=== PATIENT | male | born 1960 | race Caucasian/White ===

== ENCOUNTER 2023-09-30 14:13 | Inpatient (IN) | payer OTHER ==
[~2023-09-30] VITALS: Ht 188 cm; Wt 72.6 kg
[2023-09-30] MEDS: MORPHINE SULFATE INJ 2 MG/ML DISP.SYRIN IV ONE (14:30)
[2023-09-30 14:55] LABS: BASOPHILS # (AUTO) 0.1 K/uL (0.0-0.2); BASOPHILS % (AUTO) 1.8 % (0.0-2.0); EOSINOPHILS # (AUTO) 0.1 K/uL (0.0-0.7); EOSINOPHILS % (AUTO) 1.9 % (0.0-6.0); HEMATOCRIT 37 % (39-51); HEMOGLOBIN 12.1 g/dL (13.5-17.5); LYMPHOCYTES # (AUTO) 1.8 K/uL (0.8-4.8); LYMPHOCYTES % (AUTO) 28.8 % (20.0-44.0); MEAN CORPUSCULAR HEMOGLOBIN 27 PG (26.0-33.0); MEAN CORPUSCULAR HGB CONC 32 g/dl (31.0-36.0); MEAN CORPUSCULAR VOLUME 83 fL (80-96); MONOCYTES # (AUTO) 0.4 K/uL (0.1-1.30); NEUTROPHILS # (AUTO) 3.8 K/uL (1.8-8.9); NEUTROPHILS % (AUTO) 60.5 % (43.0-81.0); PLATELET COUNT (AUTO) 324 K/uL (150-450); RED BLOOD CELL COUNT(AUTO) 4.48 MIL/uL (4.5-6.0); RED CELL DISTRIBUTION WIDTH 16.2 % (11.5-15.0); WHITE BLOOD COUNT (AUTO) 6.2 K/uL (4.3-11.0)
[2023-09-30] MEDS ORDERED: METO100T14 PO (14:57)
[2023-09-30] MEDS ORDERED: OXYC5TAB3 PO (14:57)
[2023-09-30] MEDS ORDERED: QUET200T PO (14:57)
[2023-09-30] MEDS ORDERED: BENZ1LOZ58 PO (14:57)
[2023-09-30] MEDS ORDERED: MULT-594 PO (14:57)
[2023-09-30] MEDS ORDERED: POLY17PO4 PO (14:57)
[2023-09-30] MEDS ORDERED: CHOL100043 PO (14:57)
[2023-09-30] MEDS ORDERED: ONDA4TAB5 PO (14:57)
[2023-09-30] MEDS ORDERED: NALO1DIS2 IM (14:57)
[2023-09-30] MEDS ORDERED: TIOT18CA3 IH (14:57)
[2023-09-30] MEDS ORDERED: BUDE10.22 IH (14:57)
[2023-09-30] MEDS ORDERED: BISA10SU11 RC (14:57)
[2023-09-30] MEDS ORDERED: MAG30ORA PO (14:57)
[2023-09-30] MEDS ORDERED: LEVO750T46 PO (14:57)
[2023-09-30] MEDS ORDERED: ETHYL CHLORIDE TP (14:57)
[2023-09-30] MEDS ORDERED: ENOX40DI SQ (14:57)
[2023-09-30] MEDS ORDERED: BENZ-13 PO (14:57)
[2023-09-30] MEDS ORDERED: IBUP-1957 PO (14:57)
[2023-09-30] MEDS ORDERED: ASCO-340 PO (14:57)
[2023-09-30] MEDS ORDERED: CLOP75TA15 PO (14:57)
[2023-09-30] MEDS ORDERED: DULO20CA PO (14:57)
[2023-09-30] MEDS ORDERED: ENAL20TA70 PO (14:57)
[2023-09-30] MEDS ORDERED: GLUC1KIT SQ (14:57)
[2023-09-30] MEDS ORDERED: TRAZ-182 PO (14:57)
[2023-09-30] MEDS ORDERED: NICO1PAT44 TD (14:57)
[2023-09-30] MEDS ORDERED: SENN1TAB77 PO (14:57)
[2023-09-30] MEDS ORDERED: INSU100I4 SQ ×2 (14:57)
[2023-09-30] MEDS ORDERED: DOCU100C36 PO (14:57)
[2023-09-30] MEDS ORDERED: QUET25TA PO (14:57)
[2023-09-30] MEDS ORDERED: MAGN400O6 PO (14:57)
[2023-09-30] MEDS ORDERED: PANT20TA2 PO (14:57)
[2023-09-30] MEDS ORDERED: ACET-2030 PO (14:57)
[2023-09-30] MEDS ORDERED: RAME8TAB15 PO (14:57)
[2023-09-30] MEDS ORDERED: PREG100C PO (14:57)
[2023-09-30] MEDS ORDERED: LISI20TA30 PO (14:57)
[2023-09-30] MEDS ORDERED: BISA-79 PO (14:57)
[2023-09-30] MEDS ORDERED: PREG50CA PO (14:57)
[2023-09-30 15:12] LABS: CARBON DIOXIDE 35 mmol/L (21-32); CHLORIDE 98 mmol/L (98-107); CREATININE 0.7 mg/dL (0.6-1.3); GLUCOSE 260 mg/dL (74-106); POTASSIUM 4.8 mmol/L (3.5-5.1); SODIUM SERUM 132 mmol/L (136-145); UREA NITROGEN, BLOOD 18 mg/dL (7-18)
[2023-09-30] MEDS ORDERED: IOHEXOL-350 100 ML VIAL IV ONE (15:20)
[2023-09-30] MEDS ORDERED: IV NS 0.9% 250 ML IV ONE (15:20)
[2023-09-30 15:24] LABS: ALANINE AMINOTRANSFERASE 14 U/L (12-78); ALBUMIN 2.6 g/dL (3.4-5.0); ALKALINE PHOSPHATASE 170 U/L (46-116); ASPARTATE AMINOTRANSFERASE 11 U/L (15-37); BILIRUBIN,DIRECT 0.1 mg/dL (0.0-0.2); BILIRUBIN,TOTAL 0.2 mg/dL (0.2-1.0); CALCIUM, SERUM 8.6 mg/dL (8.5-10.1); NT-PRO BNP 684 pg/mL (0-125); TOTAL PROTEIN, SERUM 8.1 g/dL (6.4-8.2)
[2023-09-30] MEDS ORDERED: MORPHINE SULFATE INJ 2 MG/ML DISP.SYRIN ONE (16:56)
[2023-09-30] MEDS ORDERED: hydrALAZINE HCL IV 20 MG VIAL IV PRN (17:00)
[2023-09-30] MEDS ORDERED: ONDANSETRON HCL/PF 4 MG/2 ML VIAL IVP PRN (17:00)
[2023-09-30] MEDS ORDERED: DEXTROSE 50%-WATER 50 ML DISP.SYRIN IV PRN (17:00)
[2023-09-30] MEDS ORDERED: ALBUTEROL FS 2.5 MG/0.5 ML VIAL.NEB NEB PRN (17:00)
[2023-09-30] MEDS ORDERED: ACETAMINOPHEN 325 MG TABLET PO PRN (17:00)
[2023-09-30] MEDS: MORPHINE SULFATE INJ 2 MG/ML DISP.SYRIN IV PRN (17:14)
[2023-09-30] MEDS: BLOOD SUGAR DIAGNOSTIC 1 EACH STRIP VI SCH (17:30)
[2023-09-30] MEDS ORDERED: oxyCODONE IR immediate release 5 MG TABLET PO PRN (17:30)
[2023-09-30] MEDS ORDERED: IPRATROPIUM/ALBUTEROL INHALER IH SCH (18:00)
[2023-09-30] MEDS: QUETIAPINE FUMARATE 100 MG TABLET PO SCH (18:25)
[2023-09-30] MEDS: DOCUSATE SODIUM LIQ 100 MG/10 ML UDC PO SCH (18:25)
[2023-09-30] MEDS: INSULIN ASPART/LISPRO 100 UNIT/ML CARTRIDGE SQ SCH (18:43)
[2023-09-30 19:00] VITALS: BP 139/71; TEMP 98.8; O2SAT 96
[2023-09-30 19:37] VITALS: BP 131/71; TEMP 98; O2SAT 99
[2023-09-30] MEDS: LEVOFLOXACIN (250MG) 250 MG TABLET PO SCH (19:46)
[2023-09-30 19:55] VITALS: O2SAT 93
[2023-09-30 20:03] VITALS: O2SAT 93
[2023-09-30] MEDS: IPRATROPIUM NEB FS 0.5 MG/2.5 ML AMPUL.NEB NEB SCH (20:05)
[2023-09-30] MEDS: ALBUTEROL FS 2.5 MG/3 ML VIAL.NEB NEB SCH (20:05)
[2023-09-30 20:11] VITALS: O2SAT 95
[2023-09-30] MEDS: PREGABALIN 100 MG CAPSULE PO SCH (21:33)
[2023-09-30] MEDS: METOPROLOL TARTRATE 50 MG TABLET PO SCH (21:34)
[2023-09-30] MEDS: PANTOPRAZOLE 40 MG TABLET.DR PO SCH (21:36)
[2023-09-30] MEDS: TRAZODONE 50 MG TABLET PO SCH (21:36)
[2023-09-30] MEDS: HEPARIN SODIUM, PORCINE 5000 UNITS/1 ML VIAL SQ SCH (21:36)
[2023-09-30 22:00] VITALS: BP 139/73; TEMP 98; O2SAT 100
[2023-09-30] MEDS: INSULIN REGULAR, HUMAN 100 UNIT/ML 3 ML VIAL SQ PRN (22:22)
[2023-10-01] VITALS (13 sets, daily range): BP systolic 95–161; BP diastolic 72–92; TEMP 98–98.6; O2SAT 94–99
[2023-10-01] MEDS: HYDROMORPHONE 1 MG/1 ML DISP.SYRIN IV PRN (03:59)
[2023-10-01 07:44] LABS: POTASSIUM 4.2 mmol/L (3.5-5.1)
[2023-10-01 07:45] LABS: BILIRUBIN,TOTAL 0.2 mg/dL (0.2-1.0); CALCIUM, SERUM 9.1 mg/dL (8.5-10.1); CREATININE 0.7 mg/dL (0.6-1.3); PHOSPHORUS 3.8 mg/dL (2.5-4.9)
[2023-10-01 07:46] LABS: ALBUMIN 2.5 g/dL (3.4-5.0); MAGNESIUM 2.1 mg/dL (1.8-2.4); TOTAL PROTEIN, SERUM 7.9 g/dL (6.4-8.2)
[2023-10-01] MEDS: *INSULIN REGULAR(HUMULIN R)HUM 100 UNIT/ML VIAL SQ PRN (08:31)
[2023-10-01] MEDS: CLOPIDOGREL BISULFATE 75 MG TABLET PO SCH (08:34)
[2023-10-01] MEDS: DULOXETINE HCL 20 MG CAPSULE.DR PO SCH (08:34)
[2023-10-01] MEDS: QUETIAPINE FUMARATE 25 MG TABLET PO SCH (08:34)
[2023-10-01] MEDS: LISINOPRIL (20MG) 20 MG TABLET PO SCH (08:35)
[2023-10-01] MEDS: POLYETHYLENE GLYCOL 3350 17 GM POWD.PACK PO SCH (08:50)
[2023-10-01] MEDS ORDERED: LISINOPRIL (20MG) 20 MG TABLET PO SCH (09:00)
[2023-10-01 10:19] LABS: BASOPHILS # (AUTO) 0.1 K/uL (0.0-0.2); BASOPHILS % (AUTO) 1.3 % (0.0-2.0); EOSINOPHILS # (AUTO) 0.1 K/uL (0.0-0.7); EOSINOPHILS % (AUTO) 1.4 % (0.0-6.0); HEMATOCRIT 37 % (39-51); HEMOGLOBIN 12.5 g/dL (13.5-17.5); LYMPHOCYTES # (AUTO) 1.7 K/uL (0.8-4.8); LYMPHOCYTES % (AUTO) 23.3 % (20.0-44.0); MEAN CORPUSCULAR HEMOGLOBIN 28 PG (26.0-33.0); MEAN CORPUSCULAR HGB CONC 34 g/dl (31.0-36.0); MEAN CORPUSCULAR VOLUME 85 fL (80-96); MONOCYTES # (AUTO) 0.5 K/uL (0.1-1.30); NEUTROPHILS # (AUTO) 4.8 K/uL (1.8-8.9); PLATELET COUNT (AUTO) 313 K/uL (150-450); RED BLOOD CELL COUNT(AUTO) 4.43 MIL/uL (4.5-6.0); RED CELL DISTRIBUTION WIDTH 16.2 % (11.5-15.0); WHITE BLOOD COUNT (AUTO) 7.2 K/uL (4.3-11.0)
[2023-10-01 11:54] LABS: THYROID STIMULATING HORMONE 2.881 uIU/mL (0.358-3.74)
[2023-10-01 17:08] LABS: IRON, SERUM 61 ug/dl (50-175); TOTAL IRON BINDING CAPACITY 371 ug/dl (250-450)
[2023-10-01 17:23] LABS: FERRITIN 42 ng/mL (8-388); FREE PSA < 0.06 ng/mL (0.00-45); PROSTATE SPECIFIC ANTIGEN SCR 0.16 ng/mL (0.00-4.00)
[2023-10-02] VITALS (12 sets, daily range): BP systolic 96–161; BP diastolic 76–92; TEMP 97.1–99; O2SAT 92–100
[2023-10-02 06:53] LABS: BASOPHILS # (AUTO) 0.1 K/uL (0.0-0.2); BASOPHILS % (AUTO) 0.8 % (0.0-2.0); EOSINOPHILS # (AUTO) 0.1 K/uL (0.0-0.7); EOSINOPHILS % (AUTO) 1.2 % (0.0-6.0); HEMATOCRIT 35 % (39-51); HEMOGLOBIN 11.5 g/dL (13.5-17.5); LYMPHOCYTES # (AUTO) 1.3 K/uL (0.8-4.8); LYMPHOCYTES % (AUTO) 15.1 % (20.0-44.0); MEAN CORPUSCULAR HEMOGLOBIN 28 PG (26.0-33.0); MEAN CORPUSCULAR HGB CONC 33 g/dl (31.0-36.0); MEAN CORPUSCULAR VOLUME 84 fL (80-96); MONOCYTES # (AUTO) 0.5 K/uL (0.1-1.30); MONOCYTES % (AUTO) 6.1 % (2.0-12.0); NEUTROPHILS # (AUTO) 6.8 K/uL (1.8-8.9); NEUTROPHILS % (AUTO) 76.8 % (43.0-81.0); PLATELET COUNT (AUTO) 282 K/uL (150-450); RED BLOOD CELL COUNT(AUTO) 4.14 MIL/uL (4.5-6.0); WHITE BLOOD COUNT (AUTO) 8.9 K/uL (4.3-11.0)
[2023-10-02 07:07] LABS: CALCIUM, SERUM 8.5 mg/dL (8.5-10.1); CREATININE 0.7 mg/dL (0.6-1.3); POTASSIUM 3.8 mmol/L (3.5-5.1)
[2023-10-02] MEDS: THERAHONEY GEL 1.5 OZ TUBE TP SCH (10:34)
[2023-10-02] MEDS ORDERED: IV NS 0.9% 250 ML IV ONE (13:04)
[2023-10-02 13:07] LABS: FREE KAPPA LT CHAINS SERUM 101.6 mg/L (3.3-19.4); FREE LAMBDA LT CHAIN SERUM 49.2 mg/L (5.7-26.3); KAPPA/LAMBDA RATIO SERUM 2.07 (0.26-1.65)
[2023-10-02] MEDS: METOPROLOL TARTRATE INJ 5 MG/5 ML AMPUL IVP PRN (13:40)
[2023-10-02] MEDS ORDERED: NITROGLYCERIN 0.4 MG/TAB BOTTLE ONE (13:44)
[2023-10-02] MEDS ORDERED: METOPROLOL TARTRATE INJ 5 MG/5 ML AMPUL ONE ×3 (13:44→13:50)
[2023-10-02] MEDS: NITROGLYCERIN 0.4 MG/TAB BOTTLE SL ONE (13:56)
[2023-10-02 15:06] LABS: *SPE A/G RATIO 0.7 (0.7-1.7); *SPE ALBUMIN 3.1 g/dL (2.9-4.4); *SPE ALPHA-1-GLOBULIN 0.3 g/dL (0.0-0.4); *SPE ALPHA-2-GLOBULIN 0.9 g/dL (0.4-1.0); *SPE BETA GLOBULIN 1.1 g/dL (0.7-1.3); *SPE GLOBULIN, TOTAL 4.3 g/dL (2.2-3.9); *SPE M-SPIKE Not Observed g/dL (Not Observed); *SPE PROTEIN TOTAL 7.4 g/dL (6.0-8.5); *SPEGAMMA GLOBULIN 1.9 g/dL (0.4-1.8)
[2023-10-02] MEDS ORDERED: IOHEXOL-350 100 ML VIAL IV ONE (15:11)
[2023-10-02 23:08] LABS: FOLIC ACID 19.4 ng/mL (>3.0)
[2023-10-03] VITALS (7 sets, daily range): BP systolic 110–143; BP diastolic 69–80; TEMP 98–98.3; O2SAT 93–100
[2023-10-05 20:06] LABS: *MYCOPLASMA PNEUMONIAE IgG 654 U/mL (0-99); *MYCOPLASMA PNEUMONIAE IgM <770 U/mL (0-769)
== END 2023-10-03 10:03 | disposition left against medical advice (07) | DRG 203 ==
LOC: ER 14:20 → TELE1 16:05 → MEDSG1 10-03 08:54
PROVIDERS: ADMIT Internal Medicine; ATTEND Internal Medicine
DX: M94.0 Chondrocostal junction syndrome [Tietze] (principal); I11.0 Hypertensive heart disease with heart failure; I50.9 Heart failure, unspecified; E88.09 Other disorders of plasma-protein metabolism, not elsewhere classified; D64.9 Anemia, unspecified; E11.65 Type 2 diabetes mellitus with hyperglycemia; F17.200 Nicotine dependence, unspecified, uncomplicated; I25.10 Atherosclerotic heart disease of native coronary artery without angina pectoris; Z95.1 Presence of aortocoronary bypass graft; Z86.79 Personal history of other diseases of the circulatory system; Z86.718 Personal history of other venous thrombosis and embolism; Z80.0 Family history of malignant neoplasm of digestive organs; Z98.890 Other specified postprocedural states; J44.9 Chronic obstructive pulmonary disease, unspecified; I77.810 Thoracic aortic ectasia; Z79.4 Long term (current) use of insulin; Z79.01 Long term (current) use of anticoagulants; Z79.02 Long term (current) use of antithrombotics/antiplatelets; Z79.899 Other long term (current) drug therapy; Z53.29 Procedure and treatment not carried out because of patient's decision for other reasons; Z79.51 Long term (current) use of inhaled steroids; R91.8 Other nonspecific abnormal finding of lung field; Z87.81 Personal history of (healed) traumatic fracture
CPT/HCPCS: 36415; 71045-TC; 75574; 80048-TC; 80053-TC; 80061-TC; 80076-TC; 82378; 82607-TC; 82728-TC; 82784; 82962-TC; 83540-TC; 83615-TC; 83735-TC; 83880; 84100-TC; 84153-TC; 84154-TC; 84155; 84165; 84439-TC; 84443-TC; 84484-TC; 85025-TC; 86334; 86713; 86738; 87081-TC; 93307-TC; 93970-TC; 94760-TC; 94799-TC; G0378; J0360; J1170; J1644; J1815; J2270; J3490; J7050; Q9967

== ENCOUNTER 2023-10-03 11:39 | Inpatient (IN) | payer OTHER ==
[~2023-10-03] VITALS: Ht 188 cm; Wt 72.6 kg
[~2023-10-03 11:39] MED LIST: ACET-2030 PO; ASCO-340 PO; BENZ-13 PO; BENZ1LOZ58 PO; BISA-79 PO; BISA10SU11 RC; BUDE10.22 IH; CHOL100043 PO; CLOP75TA15 PO; DOCU100C36 PO; DULO20CA PO; ENAL20TA70 PO; ENOX40DI SQ; ETHYL CHLORIDE TP; GLUC1KIT SQ; IBUP-1957 PO; INSU100I4 SQ; LEVO750T46 PO; LISI20TA30 PO; MAG30ORA PO; MAGN400O6 PO; METO100T14 PO; MULT-594 PO; NALO1DIS2 IM; NICO1PAT44 TD; ONDA4TAB5 PO; OXYC5TAB3 PO; PANT20TA2 PO; POLY17PO4 PO; PREG100C PO; PREG50CA PO; QUET200T PO; QUET25TA PO; RAME8TAB15 PO; SENN1TAB77 PO; TIOT18CA3 IH; TRAZ-182 PO
[2023-10-03] MEDS: IV NS 0.9% 500 ML BAG IV ONE (12:28)
[2023-10-03 12:47] LABS: BASOPHILS # (AUTO) 0.1 K/uL (0.0-0.2); BASOPHILS % (AUTO) 1.2 % (0.0-2.0); EOSINOPHILS # (AUTO) 0.1 K/uL (0.0-0.7); EOSINOPHILS % (AUTO) 0.9 % (0.0-6.0); HEMATOCRIT 42 % (39-51); HEMOGLOBIN 13.4 g/dL (13.5-17.5); LYMPHOCYTES # (AUTO) 1.6 K/uL (0.8-4.8); MEAN CORPUSCULAR HEMOGLOBIN 27 PG (26.0-33.0); MEAN CORPUSCULAR HGB CONC 32 g/dl (31.0-36.0); MEAN CORPUSCULAR VOLUME 85 fL (80-96); MONOCYTES # (AUTO) 0.7 K/uL (0.1-1.30); MONOCYTES % (AUTO) 8.2 % (2.0-12.0); NEUTROPHILS # (AUTO) 5.6 K/uL (1.8-8.9); NEUTROPHILS % (AUTO) 69.7 % (43.0-81.0); PLATELET COUNT (AUTO) 342 K/uL (150-450); RED BLOOD CELL COUNT(AUTO) 4.96 MIL/uL (4.5-6.0); WHITE BLOOD COUNT (AUTO) 8.1 K/uL (4.3-11.0)
[2023-10-03 12:51] LABS: CALCIUM, SERUM 9.9 mg/dL (8.5-10.1); POTASSIUM 4.4 mmol/L (3.5-5.1)
[2023-10-03] MEDS ORDERED: ONDANSETRON HCL/PF 4 MG/2 ML VIAL IVP PRN (15:00)
[2023-10-03] MEDS ORDERED: ZOLPIDEM TARTRATE 5 MG TABLET PO PRN (15:00)
[2023-10-03] MEDS ORDERED: MAG HYDROX/AL HYDROX/SIMETH 30 ML UDC PO PRN ×2 (15:00→19:30)
[2023-10-03] MEDS ORDERED: MAGNESIUM HYDROXIDE 30 ML UDC PO PRN (15:00)
[2023-10-03] MEDS ORDERED: INSULIN REGULAR, HUMAN 100 UNIT/ML 3 ML VIAL SQ PRN (15:00)
[2023-10-03] MEDS ORDERED: IV D5/0.45 NACL 1,000 ML IV PRN (15:00)
[2023-10-03] MEDS ORDERED: Z GUARD REMEDY 4 OZ OINT TP PRN (15:00)
[2023-10-03] MEDS ORDERED: DEXTROSE 50%-WATER 50 ML DISP.SYRIN IV PRN (15:00)
[2023-10-03] MEDS ORDERED: ACETAMINOPHEN 325 MG TABLET PO PRN (15:00)
[2023-10-03] MEDS: BLOOD SUGAR DIAGNOSTIC 1 EACH STRIP IN SCH (17:30)
[2023-10-03] MEDS: HYDROCODONE/APAP 5/325MG TABLET PO PRN (18:30)
[2023-10-03] MEDS ORDERED: BISACODYL (5 MG) 5 MG TABLET.DR PO PRN (19:30)
[2023-10-03] MEDS ORDERED: ACETAMINOPHEN ES 500 MG TABLET PO PRN (19:30)
[2023-10-03] MEDS ORDERED: BISACODYL SUPP (10 MG) 10 MG/SUPP.RECT SUPP.RECT RC PRN (19:30)
[2023-10-03] MEDS ORDERED: BENZONATATE 100 MG CAPSULE PO PRN (19:30)
[2023-10-03] MEDS ORDERED: NALOXONE PREFILLED SYRINGE 2 MG/2 ML SYRINGE IM PRN (19:30)
[2023-10-03 20:00] VITALS: BP 137/86; TEMP 98.9; O2SAT 95
[2023-10-03] MEDS ORDERED: MENTHOL/CETYLPYRD (CEPACOL) 1 LOZ LOZENGE PO PRN (20:00)
[2023-10-03] MEDS ORDERED: GLUCAGON,HUMAN RECOMBINANT 1 MG/VIAL VIAL SQ PRN (20:30)
[2023-10-03] MEDS ORDERED: oxyCODONE IR immediate release 5 MG TABLET PO PRN (20:30)
[2023-10-03] MEDS ORDERED: ONDANSETRON 4 MG TAB.RAPDIS PO PRN (20:30)
[2023-10-03] MEDS: METOPROLOL TARTRATE 50 MG TABLET PO SCH (21:00)
[2023-10-03] MEDS: PREGABALIN 100 MG CAPSULE PO SCH (21:00)
[2023-10-03] MEDS: IBUPROFEN 800 MG TABLET PO SCH (21:00)
[2023-10-03] MEDS ORDERED: ALBUTEROL FS 2.5 MG/3 ML VIAL.NEB NEB SCH (21:00)
[2023-10-03] MEDS ORDERED: ETHYL CHLORIDE SPRAY 1 EA BOTTLE TP PRN (21:00)
[2023-10-03] MEDS: TRAZODONE 50 MG TABLET PO SCH (21:56)
[2023-10-03] MEDS ORDERED: Medication Not On Formulary EA (Ramelteon (Rozerem) 8 MG) PO SCH (22:00)
[2023-10-03] MEDS: ENOXAPARIN SODIUM 40 MG/0.4 ML DISP.SYRIN SQ SCH (22:42)
[2023-10-03] MEDS: IBUPROFEN 400 MG TABLET ONE (22:48)
[2023-10-04] VITALS: BP 155/82; TEMP 99; O2SAT 95
[2023-10-04 06:00] VITALS: BP 160/89; TEMP 98.8; O2SAT 96
[2023-10-04] MEDS ORDERED: PANTOPRAZOLE 40 MG TABLET.DR PO SCH ×2 (07:30→22:00)
[2023-10-04] MEDS ORDERED: BUDESONIDE RESPULE INH 0.5 MG/2 ML AMPUL.NEB HHN SCH (07:30)
[2023-10-04] MEDS ORDERED: IPRATROPIUM NEB FS 0.5 MG/2.5 ML AMPUL.NEB NEB SCH (07:35)
[2023-10-04 07:39] LABS: BASOPHILS # (AUTO) 0.1 K/uL (0.0-0.2); BASOPHILS % (AUTO) 1.2 % (0.0-2.0); EOSINOPHILS % (AUTO) 0.4 % (0.0-6.0); HEMATOCRIT 36 % (39-51); LYMPHOCYTES # (AUTO) 1.1 K/uL (0.8-4.8); MEAN CORPUSCULAR HEMOGLOBIN 28 PG (26.0-33.0); MEAN CORPUSCULAR HGB CONC 34 g/dl (31.0-36.0); MEAN CORPUSCULAR VOLUME 83 fL (80-96); MONOCYTES # (AUTO) 0.6 K/uL (0.1-1.30); MONOCYTES % (AUTO) 9.8 % (2.0-12.0); NEUTROPHILS # (AUTO) 4.6 K/uL (1.8-8.9); NEUTROPHILS % (AUTO) 71.6 % (43.0-81.0); PLATELET COUNT (AUTO) 289 K/uL (150-450); RED BLOOD CELL COUNT(AUTO) 4.29 MIL/uL (4.5-6.0); RED CELL DISTRIBUTION WIDTH 15.9 % (11.5-15.0); WHITE BLOOD COUNT (AUTO) 6.5 K/uL (4.3-11.0)
[2023-10-04] MEDS ORDERED: INSULIN ASPART/LISPRO 100 UNIT/ML CARTRIDGE SQ SCH (08:00)
[2023-10-04 08:03] LABS: CALCIUM, SERUM 8.3 mg/dL (8.5-10.1); CREATININE 0.6 mg/dL (0.6-1.3); MAGNESIUM 2.1 mg/dL (1.8-2.4); PHOSPHORUS 2.4 mg/dL (2.5-4.9); POTASSIUM 3.6 mmol/L (3.5-5.1)
[2023-10-04] MEDS ORDERED: ENALAPRIL MALEATE (10 MG) 10 MG TABLET PO SCH (09:00)
[2023-10-04] MEDS ORDERED: DULOXETINE HCL 20 MG CAPSULE.DR PO SCH (09:00)
[2023-10-04] MEDS ORDERED: MULTIVIT W/MINERALS 1 TAB TABLET PO SCH (09:00)
[2023-10-04] MEDS ORDERED: CHOLECALCIFEROL 1,000 UNIT TABLET (VIT D3) PO SCH (09:00)
[2023-10-04] MEDS ORDERED: ASCORBIC ACID 500 MG TABLET PO SCH (09:00)
[2023-10-04] MEDS ORDERED: NICOTINE PATCH (14MG) 14 MG PATCH.TD24 TD SCH (09:00)
[2023-10-04] MEDS ORDERED: SENNOSIDES/DOCUSATE SODIUM 1 UDTAB TABLET PO SCH (09:00)
[2023-10-04] MEDS ORDERED: CLOPIDOGREL BISULFATE 75 MG TABLET PO SCH (09:00)
[2023-10-04] MEDS ORDERED: LISINOPRIL (20MG) 20 MG TABLET PO SCH (09:00)
[2023-10-04] MEDS ORDERED: MAGNESIUM HYDROXIDE 30 ML UDC PO SCH (09:00)
[2023-10-04] MEDS ORDERED: PREGABALIN 25 MG CAPSULE PO SCH (09:00)
[2023-10-04] MEDS ORDERED: POLYETHYLENE GLYCOL 3350 17 GM POWD.PACK PO SCH (09:00)
[2023-10-04] MEDS ORDERED: QUETIAPINE FUMARATE 25 MG TABLET PO SCH (09:00)
[2023-10-04] MEDS ORDERED: LEVOFLOXACIN (250MG) 250 MG TABLET PO SCH (09:00)
[2023-10-04] MEDS ORDERED: DOCUSATE SODIUM 100 MG CAPSULE PO SCH (09:00)
[2023-10-04] MEDS ORDERED: IBUPROFEN 400 MG TABLET PO SCH (13:00)
[2023-10-04] MEDS ORDERED: ENOXAPARIN SODIUM 40 MG/0.4 ML DISP.SYRIN SQ SCH (18:00)
[2023-10-04] MEDS ORDERED: QUETIAPINE FUMARATE 100 MG TABLET PO SCH (18:00)
== END 2023-10-04 07:24 | disposition left against medical advice (07) | DRG 420 ==
LOC: ER 11:45 → TELE1 16:34
PROVIDERS: ADMIT Student in an Organized Health Care Education/Training Program; ATTEND Student in an Organized Health Care Education/Training Program
DX: E11.649 Type 2 diabetes mellitus with hypoglycemia without coma (principal); I11.0 Hypertensive heart disease with heart failure; E88.09 Other disorders of plasma-protein metabolism, not elsewhere classified; I50.9 Heart failure, unspecified; E11.65 Type 2 diabetes mellitus with hyperglycemia; D64.9 Anemia, unspecified; F17.200 Nicotine dependence, unspecified, uncomplicated; G89.29 Other chronic pain; I25.10 Atherosclerotic heart disease of native coronary artery without angina pectoris; Z95.1 Presence of aortocoronary bypass graft; Z86.79 Personal history of other diseases of the circulatory system; J44.9 Chronic obstructive pulmonary disease, unspecified; Z79.4 Long term (current) use of insulin; Z79.899 Other long term (current) drug therapy; Z79.02 Long term (current) use of antithrombotics/antiplatelets; R91.1 Solitary pulmonary nodule; R59.0 Localized enlarged lymph nodes; Z91.199 Patient's noncompliance with other medical treatment and regimen due to unspecified reason; Z53.29 Procedure and treatment not carried out because of patient's decision for other reasons; I77.810 Thoracic aortic ectasia
CPT/HCPCS: 36415; 72170-TC; 80048-TC; 82962-TC; 83735-TC; 84100-TC; 84484-TC; 85025-TC; G0378; J1650; J1815; J7040

== ENCOUNTER 2023-10-04 08:00 | Emergency (ER) | payer OTHER ==
[~2023-10-04] VITALS: Ht 188 cm; Wt 72.6 kg
[2023-10-04 09:26] VITALS: BP 145/80; TEMP 98.1; O2SAT 96
== END 2023-10-04 09:27 ==
LOC: ER 08:32
DX: Z13.9 Encounter for screening, unspecified (principal); I25.10 Atherosclerotic heart disease of native coronary artery without angina pectoris; E11.9 Type 2 diabetes mellitus without complications; I10 Essential (primary) hypertension; J44.9 Chronic obstructive pulmonary disease, unspecified; Z79.4 Long term (current) use of insulin; Z79.899 Other long term (current) drug therapy; Z60.2 Problems related to living alone